=== PATIENT | female | born 1970 | race Caucasian/White ===

== ENCOUNTER 2017-03-08 14:02 | Emergency (ER) | payer BC, MEDICAID ==
[~2017-03-08] VITALS: Ht 167.6 cm; Wt 87.0 kg
[~2017-03-08 14:02] MED LIST: ALBU8I INH; CLON1TAB PO; FIORTAB4 PO; HYDR-2768 PO; NORT75CA PO; POLY119S PO; PROT40TA PO; SOMA350T PO; TRAZ100 PO; ULTR50TA PO
[2017-03-08 14:06] VITALS: BP 134/74; PULSE 84; RESP 16; TEMP 98.2; O2SAT 99
--- NOTE | 2017-03-08 14:15 | PD ---
HPI Chief Complaint: Pain: Acute or Chronic Time Seen by Provider: 14:14 Travel History International Travel<30 days: No Contact w/Intl Traveler<30days: No Traveled to known affect area: No History of Present Illness HPI 46 YO female presents to the ED for evaluation of 4 day history of right breast pain. Acute onset while giving her "a bear hug." Pain is worsened by attempted range of motion, radiates into the right axilla. Denies fever, chills , nausea, vomiting, discharge from the breast. Patient states last mammogram was ~one year ago. She has a distant history of bilateral breast reduction. She states that she had a "mass" in the same breast with MRIs and ultrasounds performed with no diagnosis given. Denies history of fibrocystic breast disease. PFSH Past Medical History Asthma: Yes Cancer: Yes (UTERINE) Cardiovascular Problems: No Diminished Hearing: No Endocrine: Yes Fibromyalgia: Yes Gastrointestinal Disorders: Yes (HX ULCER) Genitourinary: No Hepatitis: No Hiatal Hernia: No Hypertension: Yes (RESOLVED WITH WEIGHT LOSS ; NO MEDS) Immune Disorder: Yes Kidney Stones: Yes Musculoskeletal: Yes Neurologic: Yes Psychiatric: No Reproductive: No Respiratory: Yes (asthma) Migraines: Yes Thyroid Disease: No ?: Not : 0 Para: 0 Miscarriage: 0 : 0 Dilation and Curettage (D&C): Yes (x4) Past Surgical History Abdominal Surgery: Yes (LAP. PADMINI ; GASTRIC BY-PASS; GASTRIC DILATION) AICD: No Body Medical Devices: LEFT URINARY STENT Cardiac Surgery: No Cholecystectomy: Yes Ear Surgery: No Endocrine Surgery: No Eye Surgery: No Genitourinary Surgery: Yes (05/14/13 CYSTOSCOPY WITH STENT INSERTION; 07/21 LEFT ESWL) Gynecologic Surgery: Yes Hysterectomy: Yes Joint Replacement: No Oral Surgery: Yes Pacemaker: No Thoracic Surgery: No Tonsillectomy: Yes Other Surgery: Yes (Sinus sx, Breast reduction ) Social History Alcohol Use: No Tobacco Use: No (Quit 2004) Substance Use: No Allergies-Medications (Allergen,Severity, Reaction): Coded Allergies: Lexapro (Unverified Allergy, Severe, SEVERE RASH, 06/08/15) Elavil (Verified Allergy, Intermediate, Hives, 06/08/15) Paxil (Verified Adverse Reaction, Intermediate, Psychosis, 06/08/15) mood changes, agressive behavior Neosporin (Verified Adverse Reaction, Mild, Rash, 06/08/15) blisters Nonsteroidal Anti-Inflammatory Agts (Unverified Adverse Reaction, Unknown , ULCER HISTORY, 06/08/15) Reported Meds & Prescriptions Reported Meds & Active Scripts Active Tramadol (Tramadol HCl) 50 Mg Tab 50 Mg PO Q8H PRN Reported Trazodone (Trazodone HCl) 100 Mg Tablet 100 Mg PO HS Tramadol (Tramadol HCl) 50 Mg Tab 50 Mg PO Q6H PRN Hydrochlorothiazide 25 Mg Tab 25 Mg PO DAILY Nortriptyline (Nortriptyline HCl) 75 Mg Cap 225 Mg PO HS Clonazepam 1 Mg Tab 1 Mg PO HS Soma (Carisoprodol) 350 Mg Tab 350 Mg PO QID PRN Fioricet (Adutchfuda-Akbwsfkykiqog-Jitghxfy) 50-300-40 Mg Cap 1 Cap PO Q4H PRN Review of Systems Except as stated in HPI: all other systems reviewed are Neg Physical Exam Narrative GENERAL: Well-nourished, well-developed white female in no acute distress. SKIN: Focused skin assessment warm/dry. RIGHT BREAST EXAM: No nipple retraction or peau d orange. No warmth, erythema or nipple discharge. The breast is soft. There are well-healed scars bilaterally. No palpable masses to breast exam. No axillary LAD. ++ Tenderness to palpation over the medial aspect of the pectoral muscle. Resisted abduction of the shoulder with the elbow bent elicits pain in the chest. HEAD: Normocephalic. EYES: No scleral icterus. No injection or drainage. NECK: Supple, trachea midline. No JVD or lymphadenopathy. CARDIOVASCULAR: Regular rate and rhythm without murmurs, gallops, or rubs. RESPIRATORY: Breath sounds equal bilaterally. No accessory muscle use. GASTROINTESTINAL: Abdomen soft, non-tender, nondistended. MUSCULOSKELETAL: No cyanosis, or edema. BACK: Nontender without obvious deformity. No CVA tenderness. Physical exam performed in the presence of Lisa Owen RN. Data Data Last Documented VS Vital Signs Date Time Temp Pulse Resp B/P Pulse Ox O2 Delivery O2 Flow Rate FiO2 03/08/17 14:17 16 03/08/17 14:06 98.2 84 134/74 99 MDM Medical Decision Making Medical Screen Exam Complete: Yes Emergency Medical Condition: Yes Differential Diagnosis Costochondritis versus muscle strain versus musculoskeletal pain versus less likely ruptured breast cyst versus less likely abscess versus other Narrative Course 46 YO female presents to the ED for evaluation of 4 day history of right breast pain. Acute onset while giving her "a bear hug." Pain is worsened by attempted ROM of the right arm, radiates into the right axilla. Denies F/C, N/V , discharge from the breast. Patient up-to-date on mammography. Vitals reviewed. Breast exam is unremarkable. There is some tenderness to palpation of the medial aspect of the pectoralis muscle. This pain is worsened by resisted abduction of the shoulder with the elbow bent. Very low suspicion for breast mass. I suspect this is musculoskeletal pain/costochondritis. Patient is allergic to NSAIDs. She is prescribed a short course of tramadol, instructed to rest, apply warm compresses, avoid overuse of the arm, follow up with the primary care provider. She indicated understanding of the instructions and is agreeable to the care plan. She is stable and discharged home. I Diagnosis Primary Impression: Musculoskeletal chest pain Referrals: Primary Care Physician Patient Instructions: Costochondritis (ED), General Instructions Additional Instructions: Rest, hydrate. Take anti-inflammatories as prescribed. Warm compresses applied to the area may also help to reduce her pain symptoms. Return to normal, gentle activity as tolerated. No heavy use of the right arm for the next week. Follow-up with the primary care provider for further evaluation should symptoms cyst. Return to the ED for any urgent or emergent medical condition. Med/Other Pt SpecificInfo: Prescription(s) given Scripts Tramadol 50 Mg Tab50 Mg PO Q8H PRN (PAIN) #12 TAB Ref 0 Prov:Destinee Lock MD 03/08/17 Disposition: 01 DISCHARGE HOME Condition: Stable Jing Cotto Mar 08, 2017 14:15
[2017-03-08] MEDS ORDERED: SOMA350T PO (14:30)
[2017-03-08] MEDS ORDERED: TRAZ100T6 PO (14:30)
[2017-03-08] MEDS ORDERED: TRAM50TA PO ×2 (14:30→14:38)
[2017-03-08] MEDS ORDERED: CLON1TAB PO (14:30)
[2017-03-08] MEDS ORDERED: NORT75CA PO (14:30)
[2017-03-08] MEDS ORDERED: BUTA1CAP PO (14:30)
[2017-03-08] MEDS ORDERED: HYDR25TA5 PO (14:30)
== END 2017-03-08 15:08 | disposition home or self-care (01) ==
LOC: NEPD 14:02
DX: R07.89 Other chest pain (principal); J45.909 Unspecified asthma, uncomplicated; M79.7 Fibromyalgia; I10 Essential (primary) hypertension; Z79.899 Other long term (current) drug therapy; Z88.8 Allergy status to other drugs, medicaments and biological substances; Z87.891 Personal history of nicotine dependence; Z88.6 Allergy status to analgesic agent
CPT/HCPCS: 99283

== ENCOUNTER 2017-07-11 08:29 | Emergency (ER) | payer BC, MEDICAID ==
[~2017-07-11] VITALS: Ht 167.6 cm; Wt 87.0 kg
[~2017-07-11 08:29] MED LIST changes: -ALBU8I INH; +BUTA1CAP PO; -FIORTAB4 PO; -HYDR-2768 PO; +HYDR25TA5 PO; -POLY119S PO; -PROT40TA PO; +TRAM50TA PO; -TRAZ100 PO; +TRAZ100T6 PO; -ULTR50TA PO
[2017-07-11 08:31] VITALS: BP 160/74; PULSE 90; RESP 13; TEMP 98; O2SAT 99
[2017-07-11 08:48] VITALS: BP 143/88; PULSE 86; RESP 16; O2SAT 100
[2017-07-11] MEDS ORDERED: SODIUM CHLOR 0.9% 1000 ML INJ 1,000 ML IV SCH ×2 (08:49)
[2017-07-11 08:50] VITALS: RESP 16; O2SAT 99
--- NOTE | 2017-07-11 08:53 | PD ---
HPI Chief Complaint: Abdominal Pain Time Seen by Provider: 08:49 Travel History International Travel<30 days: No Contact w/Intl Traveler<30days: No Traveled to known affect area: No History of Present Illness HPI The patient is a 46-year-old female who presents to the emergency department for 3 weeks of intermittent chills, sweats, subjective fever, generalized fatigue, and right lower quadrant abdominal pain. The patient saw her nurse practitioner at Dr. Fair's office yesterday who performed a UA which was unremarkable according to the patient and was referred to the emergency department for further evaluation. The pain is located right lower quadrant, nonradiating, and assisted with occasional painful bowel movements, with normal stool caliber. She denies any dysuria, frequency, or urgency. She does complain of mild nausea with a few episodes of vomiting. The patient does have a history of gastric bypass, cholecystectomy, and hysterectomy. Symptoms are moderate, there are no current alleviating or exacerbating factors. PFSH Past Medical History Hx Anticoagulant Therapy: No Asthma: Yes Cancer: Yes (UTERINE) Cardiovascular Problems: No Diabetes: No Diminished Hearing: No Endocrine: Yes Fibromyalgia: Yes Gastrointestinal Disorders: Yes Genitourinary: No Hepatitis: No Hiatal Hernia: No Hypertension: Yes (RESOLVED WITH WEIGHT LOSS ; NO MEDS) Immune Disorder: Yes Kidney Stones: Yes Medical other: No Musculoskeletal: Yes Neurologic: Yes Psychiatric: No Reproductive: No Respiratory: Yes Migraines: Yes Thyroid Disease: No Tetanus Vaccination: Unknown Influenza Vaccination: Yes ?: Not : 0 Para: 0 Miscarriage: 0 : 0 Dilation and Curettage (D&C): Yes (x4) Past Surgical History Abdominal Surgery: Yes (GASTRIC BY-PASS; GASTRIC DILATION) AICD: No Body Medical Devices: LEFT URINARY STENT Cardiac Surgery: No Cholecystectomy: Yes Ear Surgery: No Endocrine Surgery: No Eye Surgery: No Genitourinary Surgery: Yes (05/14/13 CYSTOSCOPY WITH STENT INSERTION; 07/21 LEFT ESWL) Gynecologic Surgery: Yes Hysterectomy: Yes Joint Replacement: No Oral Surgery: Yes Pacemaker: No Thoracic Surgery: No Tonsillectomy: Yes Social History Alcohol Use: No Tobacco Use: No (Quit 2004) Substance Use: No Allergies-Medications (Allergen,Severity, Reaction): Coded Allergies: escitalopram (Unverified Allergy, Severe, SEVERE RASH, 04/30/17) amitriptyline (Unverified Allergy, Intermediate, Hives, 04/30/17) paroxetine (Unverified Adverse Reaction, Intermediate, Psychosis, 04/30/17) mood changes, agressive behavior bacitracin (Unverified Adverse Reaction, Mild, Rash, 04/30/17) blisters gramicidin D (Unverified Adverse Reaction, Mild, Rash, 04/30/17) blisters neomycin (Unverified Adverse Reaction, Mild, Rash, 04/30/17) blisters polymyxin B (Unverified Adverse Reaction, Mild, Rash, 04/30/17) blisters diclofenac (Unverified Adverse Reaction, Unknown, ULCER HISTORY, 04/30/17) etodolac (Unverified Adverse Reaction, Unknown, ULCER HISTORY, 04/30/17) flurbiprofen (Unverified Adverse Reaction, Unknown, ULCER HISTORY, 04/30/17 ) ibuprofen (Unverified Adverse Reaction, Unknown, ULCER HISTORY, 04/30/17) indomethacin (Unverified Adverse Reaction, Unknown, ULCER HISTORY, 04/30/17 ) ketoprofen (Unverified Adverse Reaction, Unknown, ULCER HISTORY, 04/30/17) ketorolac (Unverified Adverse Reaction, Unknown, ULCER HISTORY, 04/30/17) naproxen (Unverified Adverse Reaction, Unknown, ULCER HISTORY, 04/30/17) oxaprozin (Unverified Adverse Reaction, Unknown, ULCER HISTORY, 04/30/17) Reported Meds & Prescriptions Reported Meds & Active Scripts Active Reported Trazodone (Trazodone HCl) 100 Mg Tablet 100 Mg PO HS Clonazepam 1 Mg Tab 1 Mg PO HS Soma (Carisoprodol) 350 Mg Tab 350 Mg PO QID PRN Review of Systems Except as stated in HPI: all other systems reviewed are Neg General / Constitutional: Positive: Fever, Chills Cardiovascular: No: Chest Pain or Discomfort Respiratory: No: Shortness of Breath Gastrointestinal: Positive: Nausea, Vomiting, Abdominal Pain, Changes in Bowel Habits, No: Diarrhea Genitourinary: No: Urgency, Frequency, Dysuria, Hematuria Musculoskeletal: Positive: Weakness Physical Exam Narrative GENERAL: Awake, alert, nontoxic-appearing 46-year-old female who appears her stated age and is in no acute respiratory distress. SKIN: Focused skin assessment warm/dry. HEAD: Atraumatic. Normocephalic. EYES: Pupils equal and round. No scleral icterus. No injection or drainage. ENT: No nasal bleeding or discharge. Mucous membranes pink and moist. NECK: Trachea midline. No JVD. CARDIOVASCULAR: Regular rate and rhythm. No murmur appreciated. RESPIRATORY: No accessory muscle use. Clear to auscultation. Breath sounds equal bilaterally. GASTROINTESTINAL: Abdomen soft, tender palpation right lower quadrant and right flank. No guarding or rigidity. Back: No CVA tenderness. MUSCULOSKELETAL: No obvious deformities. No clubbing. No cyanosis. No edema. NEUROLOGICAL: Awake and alert. No obvious cranial nerve deficits. Motor grossly within normal limits. Normal speech. PSYCHIATRIC: Appropriate mood and affect; insight and judgment normal. Data Data Last Documented VS Vital Signs Date Time Temp Pulse Resp B/P (MAP) Pulse Ox O2 Delivery O2 Flow Rate FiO2 07/11/17 09:54 16 07/11/17 08:50 99 Room Air 07/11/17 08:48 86 07/11/17 08:31 98.0 Orders Orders Complete Blood Count With Diff (07/11/17 08:49) Comprehensive Metabolic Panel (07/11/17 08:49) Lipase (07/11/17 08:49) Lactic Acid (07/11/17 08:49) Urinalysis - C+S If Indicated (07/11/17 08:49) Ct Abd/Pel W/O Iv Contrast (07/11/17 08:49) Iv Access Insert/Monitor (07/11/17 08:49) Ecg Monitoring (07/11/17 08:49) Oximetry (07/11/17 08:49) Morphine Inj (Morphine Inj) (07/11/17 09:00) Ondansetron Inj (Zofran Inj) (07/11/17 09:00) Sodium Chlor 0.9% 1000 Ml Inj (Ns 1000 M (07/11/17 08:49) Sodium Chloride 0.9% Flush (Ns Flush) (07/11/17 09:00) Hydromorphone Pf Inj (Dilaudid Pf Inj) (07/11/17 11:30) Prochlorperazine Inj (Compazine Inj) (07/11/17 11:30) Labs Laboratory Tests Test 07/11/17 08:53 07/11/17 08:55 White Blood Count 5.1 TH/MM3 Red Blood Count 4.99 MIL/MM3 Hemoglobin 14.3 GM/DL Hematocrit 42.5 % Mean Corpuscular Volume 85.2 FL Mean Corpuscular Hemoglobin 28.7 PG Mean Corpuscular Hemoglobin Concent 33.6 % Red Cell Distribution Width 12.4 % Platelet Count 194 TH/MM3 Mean Platelet Volume 7.8 FL Neutrophils (%) (Auto) 72.1 % Lymphocytes (%) (Auto) 18.7 % Monocytes (%) (Auto) 7.0 % Eosinophils (%) (Auto) 1.7 % Basophils (%) (Auto) 0.5 % Neutrophils # (Auto) 3.6 TH/MM3 Lymphocytes # (Auto) 0.9 TH/MM3 Monocytes # (Auto) 0.4 TH/MM3 Eosinophils # (Auto) 0.1 TH/MM3 Basophils # (Auto) 0.0 TH/MM3 CBC Comment DIFF FINAL Differential Comment Blood Urea Nitrogen 12 MG/DL Creatinine 0.86 MG/DL Random Glucose 109 MG/DL Total Protein 8.2 GM/DL Albumin 4.4 GM/DL Calcium Level 9.3 MG/DL Alkaline Phosphatase 104 U/L Aspartate Amino Transf (AST/SGOT) 19 U/L Alanine Aminotransferase (ALT/SGPT) 27 U/L Total Bilirubin 0.2 MG/DL Sodium Level 138 MEQ/L Potassium Level 3.6 MEQ/L Chloride Level 105 MEQ/L Carbon Dioxide Level 25.3 MEQ/L Anion Gap 8 MEQ/L Estimat Glomerular Filtration Rate 70 ML/MIN Lactic Acid Level 2.5 mmol/L Lipase 276 U/L Urine Color YELLOW Urine Turbidity CLEAR Urine pH 5.5 Urine Specific [place] 1.015 Urine Protein NEG mg/dL Urine Glucose (UA) NEG mg/dL Urine Ketones NEG mg/dL Urine Occult Blood SMALL Urine Nitrite NEG Urine Bilirubin NEG Urine Urobilinogen LESS THAN 2.0 MG/DL Urine Leukocyte Esterase NEG Urine RBC 2 /hpf Urine WBC 1 /hpf Urine Squamous Epithelial Cells 2 /hpf Urine Mucus FEW /lpf Microscopic Urinalysis Comment CULT NOT INDICATED MDM Medical Decision Making Medical Screen Exam Complete: Yes Emergency Medical Condition: Yes Medical Record Reviewed: Yes Interpretation(s) Last Impressions Abdomen/Pelvis CT 07/11/17 0849 Signed Impressions: Service Date/Time: Tuesday, July 11, 2017 09:28 - CONCLUSION: 1. No acute abnormality to explain the patient's pain. 2. Prior cholecystectomy. 3. Prior gastric bypass. 4. Prior granulomatous disease. Abilio Ritter Jr., MD Laboratory Tests Test 07/11/17 08:53 07/11/17 08:55 White Blood Count 5.1 TH/MM3 Red Blood Count 4.99 MIL/MM3 Hemoglobin 14.3 GM/DL Hematocrit 42.5 % Mean Corpuscular Volume 85.2 FL Mean Corpuscular Hemoglobin 28.7 PG Mean Corpuscular Hemoglobin Concent 33.6 % Red Cell Distribution Width 12.4 % Platelet Count 194 TH/MM3 Mean Platelet Volume 7.8 FL Neutrophils (%) (Auto) 72.1 % Lymphocytes (%) (Auto) 18.7 % Monocytes (%) (Auto) 7.0 % Eosinophils (%) (Auto) 1.7 % Basophils (%) (Auto) 0.5 % Neutrophils # (Auto) 3.6 TH/MM3 Lymphocytes # (Auto) 0.9 TH/MM3 Monocytes # (Auto) 0.4 TH/MM3 Eosinophils # (Auto) 0.1 TH/MM3 Basophils # (Auto) 0.0 TH/MM3 CBC Comment DIFF FINAL Differential Comment Blood Urea Nitrogen 12 MG/DL Creatinine 0.86 MG/DL Random Glucose 109 MG/DL Total Protein 8.2 GM/DL Albumin 4.4 GM/DL Calcium Level 9.3 MG/DL Alkaline Phosphatase 104 U/L Aspartate Amino Transf (AST/SGOT) 19 U/L Alanine Aminotransferase (ALT/SGPT) 27 U/L Total Bilirubin 0.2 MG/DL Sodium Level 138 MEQ/L Potassium Level 3.6 MEQ/L Chloride Level 105 MEQ/L Carbon Dioxide Level 25.3 MEQ/L Anion Gap 8 MEQ/L Estimat Glomerular Filtration Rate 70 ML/MIN Lactic Acid Level 2.5 mmol/L Lipase 276 U/L Urine Color YELLOW Urine Turbidity CLEAR Urine pH 5.5 Urine Specific [place] 1.015 Urine Protein NEG mg/dL Urine Glucose (UA) NEG mg/dL Urine Ketones NEG mg/dL Urine Occult Blood SMALL Urine Nitrite NEG Urine Bilirubin NEG Urine Urobilinogen LESS THAN 2.0 MG/DL Urine Leukocyte Esterase NEG Urine RBC 2 /hpf Urine WBC 1 /hpf Urine Squamous Epithelial Cells 2 /hpf Urine Mucus FEW /lpf Microscopic Urinalysis Comment CULT NOT INDICATED Differential Diagnosis Differential diagnosis includes diverticulitis, appendicitis, intra-abdominal abscess, internal hernia, pyelonephritis, retained biliary stone, viral syndrome , dehydration. Narrative Course IV was established, labs are drawn and sent, and the patient was placed on cardiac telemetry monitoring and continuous pulse oximetry monitoring. The patient was administered morphine, Zofran, and IV fluids. UA was sent to lab. Noncontrast CT of the abdomen and pelvis was performed. Patient's white count, LFTs, lipase unremarkable. Lactic acid is mildly elevated at 2.5. CT the abdomen and pelvis reveals postoperative changes, however, no acute findings. UA is unremarkable. Vital signs are stable. The patient is stable for outpatient follow-up with her primary physician. The patient will be provided a copy of her labs and CT results at discharge. The patient was reassessed at 11:24 AM, still had mild discomfort. Therefore, was administered a second dose of pain medicine and antiemetics. The patient will be discharged home on antiemetics and pain medicine. She is advised to follow-up with her primary physician. Diagnosis Primary Impression: Abdominal pain Qualified Codes: R10.31 - Right lower quadrant pain Patient Instructions: General Instructions Additional Instructions: Follow-up with your primary physician. Return if symptoms worsen or progress. Please provide the patient a copy of her CT results and lab results at discharge. Return if symptoms worsen or progress. Med/Other Pt SpecificInfo: Prescription(s) given Scripts Hydrocodone-Acetaminophen ([place]) 5-325 mg Tab 1 TAB PO Q6H Y for PAIN, #12 TAB 0 Refills Prov: Ash Becerril MD 07/11/17 Ondansetron Odt (Zofran Odt) 4 Mg Tab 4 MG SL Q6HR Y for Nausea/Vomiting, #10 TAB 0 Refills Prov: Ash Becerril MD 07/11/17 Disposition: DISCHARGE HOME Condition: Stable Ash Becerril MD Jul 11, 2017 08:53
[2017-07-11] MEDS ORDERED: ONDANSETRON HCL 4 MG/2 ML VIAL IVP ONE ×2 (09:00)
[2017-07-11] MEDS ORDERED: MORPHINE SULFATE 4 MG/ML INJ IV PUSH ONE ×2 (09:00)
[2017-07-11] MEDS ORDERED: SODIUM CHLORIDE 0.9% FLUSH 10 ML FLUSH IV FLUSH PRN ×2 (09:00)
[2017-07-11 09:05] LABS: AUTOMATED NEUTROPHIL # 3.6 TH/MM3 (1.8-7.7); BASOPHIL % 0.5 % (0.0-2.0); EOSINOPHIL # 0.1 TH/MM3 (0-0.4); EOSINOPHIL % 1.7 % (0.0-4.0); HEMATOCRIT 42.5 % (35.0-46.0); HEMOGLOBIN 14.3 GM/DL (11.6-15.3); LYMPH % 18.7 % (9.0-44.0); LYMPHOCYTE # 0.9 TH/MM3 (1.0-4.8); MEAN CELL VOLUME 85.2 FL (80.0-100.0); MEAN CORPUSCULAR HEMOGLOBIN 28.7 PG (27.0-34.0); MEAN CORPUSCULAR HGB CONC 33.6 % (32.0-36.0); MEAN PLATELET VOLUME 7.8 FL (7.0-11.0); MONOCYTE # 0.4 TH/MM3 (0-0.9); NEUT % 72.1 % (16.0-70.0); PLATELET COUNT 194 TH/MM3 (150-450); RED BLOOD COUNT 4.99 MIL/MM3 (4.00-5.30); RED CELL DISTRIBUTION WIDTH 12.4 % (11.6-17.2); WHITE BLOOD COUNT 5.1 TH/MM3 (4.0-11.0)
[2017-07-11 09:20] LABS: ALBUMIN 4.4 GM/DL (3.4-5.0); AST (GOT) 19 U/L (15-37); BICARBONATE 25.3 MEQ/L (21.0-32.0); BLOOD UREA NITROGEN 12 MG/DL (7-18); CALCIUM 9.3 MG/DL (8.5-10.1); CHLORIDE 105 MEQ/L (98-107); CREATININE 0.86 MG/DL (0.50-1.00); GLOMERULAR FILTRATION RATE 70 ML/MIN (>89); GLUCOSE,RANDOM 109 MG/DL (74-106); LIPASE 276 U/L (73-393); SODIUM (NA) 138 MEQ/L (136-145)
[2017-07-11 09:23] LABS: ALKALINE PHOSPHATASE 104 U/L (45-117); ALT (GPT) 27 U/L (10-53); TOTAL BILIRUBIN ADULT 0.2 MG/DL (0.2-1.0); TOTAL PROTEIN 8.2 GM/DL (6.4-8.2)
[2017-07-11 09:54] VITALS: RESP 16
--- NOTE | 2017-07-11 10:00 | RADRPT ---
EXAM DATE/TIME: 07/11/2017 09:28 [facility] COMPARISON: No previous studies available for comparison. INDICATIONS : Right lower quadrant pain, nausea, vomiting and fatigue. ORAL CONTRAST: No oral contrast ingested. RADIATION DOSE: 7.77 CTDIvol (mGy) MEDICAL HISTORY : Hypertension. Renal calculi. Uterine cancer SURGICAL HISTORY : Hysterectomy. Cholecystectomy.Gastric bypass. ENCOUNTER: Initial ACUITY: 3 weeks PAIN SCALE: 7/10 LOCATION: Right lower quadrant TECHNIQUE: Volumetric scanning of the abdomen and pelvis was performed. Using automated exposure control and ad justment of the mA and/or kV according to patient size, radiation dose was kept as low as reasonably achievable to obtain optimal diagnostic quality images. DICOM format image data is available electro nically for review and comparison. FINDINGS: LOWER LUNGS: Multiple calcified granulomas involving the lung bases. LIVER: Homogeneous density without lesion. There is no dilation of the biliary tree. Gallbladder surgically absent. SPLEEN: Normal size without lesion. Granulomatous calcifications. PANCREAS: Within normal limits. KIDNEYS: The left kidney is smaller than the right. Areas of cortical scarring involving the left upper pole. No renal calculi or ureteral calculi. No hydronephrosis or hydroureter. No mass on this unenhanced st udy. ADRENAL GLANDS: Within normal limits. VASCULAR: There is no aortic aneurysm. BOWEL/MESENTERY: Post gastric bypass changes. Small bowel and colon are unremarkable. No free air or free fluid. ABDOMINAL WALL: Within normal limits. RETROPERITONEUM: There is no lymphadenopathy. BLADDER: No wall thickening or mass. REPRODUCTIVE: Within normal limits. INGUINAL: There is no lymphadenopathy or hernia. MUSCULOSKELETAL: A degenerative lumbar spine. CONCLUSION: 1. No acute abnormality to explain the patient's pain. 2. Prior cholecystectomy. 3. Prior gastric bypass. 4. Prior granulomatous disease. Abilio Ritter Jr., MD on July 11, 2017 at 9:50 Board Certified Radiologist. This report was verified electronically.
[2017-07-11 10:22] LABS: BILIRUBIN, URINE NEG (NEG); BLOOD, URINE SMALL (NEG); GLUCOSE,URINE NEG (NEG); KETONE, URINE NEG (NEG); MUCUS URINE FEW /lpf (OCC); NITRITE,URINE NEG (NEG); PH, URINE 5.5 (5.0-8.5); SQUAMOUS EPITHELIAL CELL URINE 2 /hpf (0-5); URINE COLOR YELLOW (YELLW/STRAW); URINE LEUKOCYTE ESTERASE NEG (NEG)
[2017-07-11] MEDS ORDERED: ZOFR4TAB3 SL ×2 (11:27)
[2017-07-11] MEDS ORDERED: NORC5TAB PO ×2 (11:27)
[2017-07-11] MEDS ORDERED: HYDROmorphone HCL PF 0.5 MG/0.5 ML SYRINGE IV PUSH ONE ×2 (11:30)
[2017-07-11] MEDS ORDERED: PROCHLORPERAZINE INJ 10 MG/2 ML VIAL IV PUSH ONE ×2 (11:30)
== END 2017-07-11 12:02 | disposition home or self-care (01) ==
LOC: NEPC 08:29
DX: R10.31 Right lower quadrant pain (principal); R11.2 Nausea with vomiting, unspecified; R50.9 Fever, unspecified; R53.1 Weakness; J45.909 Unspecified asthma, uncomplicated; M79.7 Fibromyalgia; I10 Essential (primary) hypertension; Z79.899 Other long term (current) drug therapy
CPT/HCPCS: 74176; 80053; 81001; 83605; 83690; 85025; 96361; 96374; 96375; 99285; J0780; J1170; J2270; J2405; J7030

== ENCOUNTER 2018-04-28 10:56 | Observation (INO) ==
--- NOTE | 2018-04-28 11:53 | ED ---
HPI General Chief Complaint: Chest Pain Stated Complaint: chest pain x yesterday Time Seen by Provider: 04/28/18 11:32 Source: patient Mode of arrival: ambulatory Limitations: no limitations History of Present Illness MD complaint: chest pain Complete Quality Measures for STEMI Alert Patients STEMI Alert: No Onset (ago): hour(s) (12-15) Duration: constant Onset: during rest Pain location: substernal Severity scale (1-10): 4 Quality: heaviness Pain radiation: none Relieving factors: nothing Exacerbating factors: movement Associated symptoms: dyspnea, palpitations and other (dizziness and fatigue) Treatments prior to arrival chest pain: none Related Data Home Medications Medication Instructions Recorded Confirmed clonazepam 1 mg PO HS 04/28/18 04/28/18 cyanocobalamin (vitamin B-12) 1,000 mcg DAILY 04/28/18 04/28/18 [Vitamin B-12] cyclobenzaprine 5 mg PO TID 04/28/18 04/28/18 nortriptyline 50 mg PO HS 04/28/18 04/28/18 trazodone 100 mg PO HS 04/28/18 04/28/18 Allergies Allergy/AdvReac Type Severity Reaction Status Date / Time escitalopram Allergy Severe SEVERE RASH Unverified 04/30/17 00:22 amitriptyline Allergy Intermediate Hives Unverified 04/30/17 00:22 paroxetine AdvReac Intermediate Psychosis Unverified 04/30/17 00:22 bacitracin AdvReac Mild Rash Unverified 04/30/17 00:22 gramicidin D AdvReac Mild Rash Unverified 04/30/17 00:22 neomycin AdvReac Mild Rash Unverified 04/30/17 00:22 polymyxin B AdvReac Mild Rash Unverified 04/30/17 00:22 diclofenac AdvReac Unknown ULCER Unverified 04/30/17 00:22 HISTORY etodolac AdvReac Unknown ULCER Unverified 04/30/17 00:22 HISTORY flurbiprofen AdvReac Unknown ULCER Unverified 04/30/17 00:22 HISTORY ibuprofen AdvReac Unknown ULCER Unverified 04/30/17 00:22 HISTORY indomethacin AdvReac Unknown ULCER Unverified 04/30/17 00:22 HISTORY ketoprofen AdvReac Unknown ULCER Unverified 04/30/17 00:22 HISTORY ketorolac AdvReac Unknown ULCER Unverified 04/30/17 00:22 HISTORY naproxen AdvReac Unknown ULCER Unverified 04/30/17 00:22 HISTORY oxaprozin AdvReac Unknown ULCER Unverified 04/30/17 00:22 HISTORY Review of Systems ROS: all other systems reviewed are negative FORMERLY [facility], 1928–1983 Medical History Medical History Bleeding acute gastric ulcer (Acute) Fibromyalgia (Acute) H/O: hysterectomy (Acute) Migraines (Acute) Surgical History Surgical History Gastric bypass status for obesity (Acute) Hx of dilation and curettage (Acute) Social History Social History Substance History: No History of Abuse Second Hand Smoke Exposure: No Smoking Status: Never smoker How Often Do You Have a Drink Containing Alcohol: Never Recent Travel in [facility] within the Last 8 Weeks: No Recent Out of Country Travel within the Last 8 Weeks: No Immunization History Tetanus Immunization: >5 Years Hx Influenza Vaccine This Season: Yes Exam Const General: cooperative, healthy appearing, comfortable, no acute distress, well developed and well groomed Nutritional Appearance: average body habitus Orientation: alert, awake and oriented x3 HENVA Head: normal to inspection, normocephalic and atraumatic Eyes General: appearance normal, both eyes and all related structures EOM: EOM intact bilaterally Neck Neck: normal visual inspection Chest Chest: normal inspection of the chest, normal palpation of entire chest wall and no tenderness Resp Effort & Inspection: normal respiratory effort and able to speak in complete sentences Auscultation: clear to auscultation bilaterally Cardio Rate: regular rate Rhythm: regular rhythm Heart Sounds: S1 normal and S2 normal GI Inspection: normal to inspection Palpation: soft Back/Spine/Pelvis Cervical Spine: cervical ROM normal Thoracic/Lumbar Spine: thoraco-lumbar ROM normal Skin General: no rashes or lesions noted and turgor normal Neuro General: alert, awake, oriented x3, moves all extremities and CN's II-XI intact bilaterally Extrem General: normal to inspection, full ROM and no edema Psych Appearance: grossly normal Mental Status: mental status grossly normal Speech and Movement: speech and movement normal Mood: congruent mood Affect: normal affect Attitude: cooperative Thought Process: normal Thought Content: normal Judgment: judgment good Course Consultations Consultation #1: Dr. Saini will admit to [facility] for further evaluation. Time: 12:56 Initial Documented Vital Signs Temperature 97.7 F 04/28/18 11:02 Pulse Rate 72 04/28/18 11:02 Respiratory Rate 16 04/28/18 11:02 Blood Pressure 148/83 H 04/28/18 11:02 Pulse Oximetry 100 04/28/18 11:02 Last Documented Vital Signs Temperature 97.7 F 04/28/18 11:02 Pulse Rate 65 04/28/18 11:30 Respiratory Rate 16 04/28/18 11:30 Blood Pressure 125/78 04/28/18 11:30 Pulse Oximetry 100 04/28/18 11:30 Critical Care Time Critical Care Time: Yes Total Critical Care Time: 30 Attestation: Time to perform other separately billable procedures was not included in the critical care time. My time did not include minutes spent treating any other patients simultaneously or on activities that did not directly contribute to the patient's treatment. The services I provided to this patient were to treat and/or prevent clinically significant deterioration due to chest pain, rule out ACS. I provided critical care services requiring my management, as noted below: Chart data review, documentation time, medication orders and management, vital sign assessments/reviewing monitor data, ordering and reviewing lab tests, ordering and interpreting/reviewing x-rays and diagnostic studies, care of the patient and discussion of the patient with the admitting physicians Clinical Decision Support HEART Score Questions History: Slightly suspicious EKG: Normal Age: 45-64 years Risk Factors: No Known Risk Factors Initial Troponin: Normal Limit Heart Score HEART Score: 1 PERC Rule Age greater than or equal to 50: No HR greather than or equal to 100: No Sa02 on room air is less than 95%: No Unilateral Leg Swelling: No Hemoptysis: No Recent Surgery or Trauma: No Prior PE or DVT: No Hormone Use: No Medical Decision Making MDM Narrative Medical decision making narrative: This patient presents with a chief complaint of chest pain with associated palpitations. Onset was last night. Her physical exam is unremarkable. Her initial EKG is normal. I have discussed my initial plan with the patient. Specifically, I will work her up here in the emergency department. If her initial workup is negative, I recommend admission to the chest pain center for further evaluation. She is agreeable with this initial treatment plan. The patient cannot take aspirin because of a history of bleeding peptic ulcer disease. Initial evaluation is indeed negative. I will request an OBS admission to the chest pain center for further evaluation. Medical Screen Exam Complete: Yes Emergency Medical Condition: Yes Differential Diagnosis Differential Diagnosis: Differential diagnosis of chest pain includes but is not limited to musculoskeletal pain, pulmonary embolism, acute coronary syndrome , pneumonia, pleurisy Medical Records Medical records reviewed: Yes I reviewed the patient's medical records. Lab Data Lab results reviewed: Yes I reviewed the patient's lab results. Result diagrams: 04/28/18 11:57 04/28/18 11:57 Lab Results 04/28/18 04/28/18 Range/Units 11:57 11:57 CBC w Diff Auto diff final WBC 6.3 (4.0-11.0) th/mm3 RBC 4.78 (4.00-5.30) mil/mm3 Hgb 13.4 (11.6-15.3) gm/dL Hct 39.9 (35.0-46.0) % MCV 83.5 (80.0-100.0) fL MCH 28.1 (27.0-34.0) pg MCHC 33.6 (32.0-36.0) % RDW 12.5 (11.6-17.2) % Plt Count 268 (150-450) th/mm3 MPV 8.1 (7.0-11.0) fL Neut % (Auto) 73.5 H (16.0-70.0) % Lymph % (Auto) 18.7 (9.0-44.0) % [place] % (Auto) 5.7 (0.0-8.0) % Eos % (Auto) 1.5 (0.0-4.0) % Baso % (Auto) 0.6 (0.0-2.0) % Neut # (Auto) 4.6 (1.8-7.7) th/mm3 Lymph # (Auto) 1.2 (1.0-4.8) th/mm3 [place] # (Auto) 0.4 (0.0-0.9) th/mm3 Eos # (Auto) 0.1 (0.0-0.4) th/mm3 Baso # (Auto) 0.0 (0.0-0.2) th/mm3 WBC Differential . Differential Comment . Sodium 139 (136-145) meq/L Potassium 3.8 (3.5-5.1) meq/L Chloride 105 (98-107) meq/L Carbon Dioxide 27.3 (21.0-32.0) meq/L Anion Gap 7 (5-15) meq/L BUN 12 (7-18) mg/dL Creatinine 0.98 (0.50-1.00) mg/dL Estimated GFR 60 L (>89) mL/min Random Glucose 77 (74-106) mg/dL Calcium 9.2 (8.5-10.1) mg/dL Troponin I Less than 0.02 L (0.02-0.05) ng/mL Imaging Data Attestation: I personally reviewed and interpreted this imaging study as follows : Radiologist's impression: Chest X-Ray 04/28/18 11:34 CONCLUSION: 1. Granulomatous type calcifications in both lungs, left greater than right. 2. No acute infiltrate. ECG Data EKG Prior to Arrival: Yes Attestation: I personally reviewed and interpreted this ECG as follows: Discharge Plan Discharge Disposition Patient Disposition: 30 Still Patient Discharge Details Diagnosis: Chest pain Physicians Team ED Provider: Destinee Lock Primary Care Provider: Susie Johnson Rxs /Orders / Referrals /Forms Prescriptions: No Action clonazepam 1 mg Tablet 1 mg PO HS RF: 0 cyanocobalamin (vitamin B-12) [Vitamin B-12] 1,000 mcg Tablet 1,000 mcg DAILY RF: 0 trazodone 100 mg Tablet 100 mg PO HS RF: 0 nortriptyline 50 mg Capsule 50 mg PO HS RF: 0 cyclobenzaprine 5 mg Tablet 5 mg PO TID RF: 0 Discharge Instructions Patient Printed Instructions: Chest Pain (ED) Status ED Status: With Doctor
--- NOTE | 2018-04-28 12:01 | XR ---
EXAM DATE: 04/28/2018 11:47 AM EDT AGE/SEX: 47 years / Female INDICATIONS: Chest tightness, heaviness, heart palpitations since last night. CLINICAL DATA: This is the patient's initial encounter. Patient reports that signs and symptoms have been present for 2 days and indicates a pain score of 4/10. MEDICAL/SURGICAL HISTORY: . History of diabetes, high cholesterol, hypertension prior to gastri c bypass surgery. Gastric bypass. COMPARISON: [facility] [place]ST SING[place] AP, 01/27/2016. . FINDINGS: There are bilateral granulomatous type calcifications, predominantly on the left. Left hilar calcific ations are also present. Lungs are otherwise clear of acute infiltrate. There are no effusions. Heart size is normal. Some degenerative spurring of the dorsal spine CONCLUSION: 1. Granulomatous type calcifications in both lungs, left greater than right. 2. No acute infiltrate. Electronically signed by: Victor Manuel Valentin MD 04/28/2018 11:59 AM EDT
[2018-04-28 12:08] LABS: Baso % (Auto) 0.6 % (0.0-2.0); Eos # (Auto) 0.1 th/mm3 (0.0-0.4); Eos % (Auto) 1.5 % (0.0-4.0); Hematocrit 39.9 % (35.0-46.0); Hemoglobin 13.4 gm/dL (11.6-15.3); Lymph # (Auto) 1.2 th/mm3 (1.0-4.8); Lymph % (Auto) 18.7 % (9.0-44.0); Mean Corpuscular HGB Conc 33.6 % (32.0-36.0); Mean Corpuscular Hemoglobin 28.1 pg (27.0-34.0); Mean Corpuscular Volume 83.5 fL (80.0-100.0); Mean Platelet Volume 8.1 fL (7.0-11.0); Mono # (Auto) 0.4 th/mm3 (0.0-0.9); Mono % (Auto) 5.7 % (0.0-8.0); Neut # (Auto) 4.6 th/mm3 (1.8-7.7); Neut % (Auto) 73.5 % (16.0-70.0); Platelet Count 268 th/mm3 (150-450); Red Blood Count 4.78 mil/mm3 (4.00-5.30); Red Cell Distribution Width 12.5 % (11.6-17.2); White Blood Count 6.3 th/mm3 (4.0-11.0)
[2018-04-28 12:14] LABS: Chloride 105 meq/L (98-107); Potassium 3.8 meq/L (3.5-5.1); Sodium 139 meq/L (136-145)
[2018-04-28 12:17] LABS: Anion Gap 7 meq/L (5-15); Calcium 9.2 mg/dL (8.5-10.1); Carbon Dioxide 27.3 meq/L (21.0-32.0); Glucose,Random 77 mg/dL (74-106)
[2018-04-28 12:18] LABS: Blood Urea Nitrogen 12 mg/dL (7-18)
[2018-04-28 12:21] LABS: Glomerular Filtration Rate 60 mL/min (>89)
[2018-04-28] MEDS ORDERED: Acetaminophen 500 MG Tablet PO PRN (13:12)
[2018-04-28] MEDS ORDERED: Morphine Sulfate Inj 2 MG/ML Vial IV.PUSH PRN (13:30)
--- NOTE | 2018-04-28 13:55 | ECG ---
Date Performed: 04/28/2018 Time Performed: 11:02:36 PTAGE: 47 years EKG: Sinus rhythm NORMAL ECG NO PREVIOUS TRACING DOCTOR: Arnel Gaines Interpretating Date/Time 04/28/2018 13:54:36
--- NOTE | 2018-04-28 15:19 | P.HP ---
History of Present Illness Primary Care Physician: Susie Johnson Chief Complaint: Chest pain History of Present Illness: 47-year-old female with known history of fibromyalgia, hypertension, hyperlipidemia, diabetes, obesity status post gastric bypass, esophagitis with gastric ulcers who presented to the hospital because of very atypical chest discomfort. Patient indicates for the last year she has been experiencing a discomfort in which she explains and describes as a cold sensation starting in her heart going all way down into her leg veins and then back up into her heart sometimes it is associated with a pressure/heaviness sensation in the middle part of her chest, without any radiation to the neck, back, shoulder, arms. She does have some nausea occasionally dizziness occasionally. She denies any shortness of breath, dyspnea, diaphoresis. Patient states that she had worsening of the symptoms over the last couple days. She states that it was worse when she was laying down this morning that she got up and because the pain was constant she was concerned and came to emergency department. She states that the pain usually lasts for 2-3 minutes at a time usually but it did not this time. She states that she has notified her primary medical doctor about these symptoms before, however there is been no outpatient workup at this time. Patient was evaluated in the emergency department, workup was negative. Patient was recommended by the ER physician to be observed for chest pain center. - Diagnosis (1) Chest pain Review of Systems All other systems reviewed negative except as stated in HPI Cardiovascular: Reports chest pain Neurologic: Reports dizziness PMFSH - History History Provided By: Patient - Medical History Medical History: Medical History (Last Updated 04/28/18 @ 15:16 by LOIS Velazquez) Bleeding acute gastric ulcer Fibromyalgia History of diabetes mellitus History of hyperlipidemia History of hypertension Migraines - Surgical History Surgical History: Surgical History (Last Updated 04/28/18 @ 15:16 by LOIS Velazquez) Gastric bypass status for obesity H/O: hysterectomy Hx of dilation and curettage - Family History Family History: Family History (Last Updated 04/28/18 @ 15:16 by LOIS Velazquez) Other No pertinent family history - Tobacco History Second Hand Smoke Exposure: No Tobacco Use In Past 30 Days: No Smoking Status: Never smoker Number of Pack Years (if former smoker): 45 - Alcohol History How Often Do You Have a Drink Containing Alcohol: Never - Substance Use History Substance History: No History of Abuse - Travel History Recent Travel in the [place] Within the Last 8 Weeks: No Recent Travel Out of the Country Within the Last 8 Weeks: No - Immunization History Tetanus Immunization: >5 Years Hx Influenza Vaccine This Season: Yes Medications and Allergies Active Medications: Active Medications Acetaminophen (Tylenol) 500 mg PO Q4H PRN PRN Reason: HEADACHE Hydrocodone Bitart/Acetaminophen ([place] 7.5/325) 1 tab PO Q4H PRN PRN Reason: PAIN SCALE 1 TO 7 Aspirin (Aspirin) 325 mg PO DAILY YONAS Clonazepam (Klonopin) 1 mg PO HS YONAS Cyclobenzaprine HCl (Flexeril) 5 mg PO TID YONAS Miscellaneous (Pill Splitter) 1 each OTHER UNSCH PRN PRN Reason: SEE LABEL COMMENTS Morphine Sulfate (Morphine Inj) 2 mg IV.PUSH Q4H PRN PRN Reason: PAIN 8-10 Nitroglycerin (Nitrostat Sl) 0.4 mg SL Q5M PRN PRN Reason: CHEST PAIN Nortriptyline HCl (Pamelor) 50 mg PO HS YONAS Ondansetron HCl (Zofran Inj) 4 mg IV.PUSH Q6H PRN PRN Reason: NAUSEA Sodium Chloride (Ns Flush) 2 ml IV.FLUSH BID YONAS Sodium Chloride (Ns Flush) 2 ml IV.FLUSH PRN PRN PRN Reason: FLUSH AFTER USING IV ACCESS Trazodone HCl (Desyrel) 100 mg PO HS YONAS Allergies Allergy/AdvReac Type Severity Reaction Status Date / Time escitalopram Allergy Severe SEVERE RASH Verified 04/28/18 13:25 amitriptyline Allergy Intermediate Hives Verified 04/28/18 13:25 paroxetine AdvReac Intermediate Psychosis Verified 04/28/18 13:25 bacitracin AdvReac Mild Rash Verified 04/28/18 13:25 gramicidin D AdvReac Mild Rash Verified 04/28/18 13:25 neomycin AdvReac Mild Rash Verified 04/28/18 13:25 polymyxin B AdvReac Mild Rash Verified 04/28/18 13:25 diclofenac AdvReac Unknown ULCER Verified 04/28/18 13:25 HISTORY etodolac AdvReac Unknown ULCER Verified 04/28/18 13:25 HISTORY flurbiprofen AdvReac Unknown ULCER Verified 04/28/18 13:25 HISTORY ibuprofen AdvReac Unknown ULCER Verified 04/28/18 13:25 HISTORY indomethacin AdvReac Unknown ULCER Verified 04/28/18 13:25 HISTORY ketoprofen AdvReac Unknown ULCER Verified 04/28/18 13:25 HISTORY ketorolac AdvReac Unknown ULCER Verified 04/28/18 13:25 HISTORY naproxen AdvReac Unknown ULCER Verified 04/28/18 13:25 HISTORY oxaprozin AdvReac Unknown ULCER Verified 04/28/18 13:25 HISTORY Home Medications Medication Instructions Recorded Confirmed Type clonazepam 1 mg PO HS 04/28/18 04/28/18 History cyanocobalamin (vitamin B-12) 1,000 mcg DAILY 04/28/18 04/28/18 History [Vitamin B-12] cyclobenzaprine 5 mg PO TID 04/28/18 04/28/18 History nortriptyline 50 mg PO HS 04/28/18 04/28/18 History trazodone 100 mg PO HS 04/28/18 04/28/18 History Exam Vital signs: Vital Signs 04/28/18 11:02 04/28/18 11:30 04/28/18 13:12 Temperature 97.7 F Pulse Rate 72 65 71 Respiratory Rate 16 16 16 Blood Pressure 148/83 H 125/78 131/84 Pulse Oximetry 100 100 100 04/28/18 14:38 Temperature 96.8 F L Pulse Rate 75 Respiratory Rate 20 Blood Pressure 170/84 H Pulse Oximetry 98 Intake & Output 04/27/18 04/28/18 04/28/18 18:59 06:59 18:59 Weight 78 kg Other: Weight On Admission 78 kg Narrative: GENERAL: Well-developed, well-nourished, in no acute distress. alert and orientated HEENT: Head is normocephalic without any lesions or masses noted. Facial features are symmetric. Eyes: Pupils equal round reactive to light. Extraocular muscles are intact. Conjunctivae were clear. Oropharyngeal: Pharynx without any erythema edema. Tongue is midline without deviation. Buccal mucosa is moist without any masses or lesions NECK: Supple without any masses. Trachea midline no deviation. No JVD, no bruits are appreciated CARDIAC: Regular rhythm, regular rate. S1/S2 are heard. No murmurs gallops or rubs. LUNGS: Clear to auscultation bilaterally. No wheeze, rhonchi or rales. No use of accessory muscles on inspiration or expiration. ABDOMEN: Soft, nontender. Nondistended. Bowel sounds heard in all 4 quadrants. No organomegaly or masses. Negative rebound, negative guarding EXTREMITIES: No edema, pulses are equal bilaterally. No cyanosis or clubbing NEUROLOGY: Mood and affect appear appropriate. Cranial nerves II through XII grossly intact. Muscle strength 5/5 in upper and lower extremities bilaterally. Deep tendon reflexes are 2+ in upper and lower extremities bilaterally. Results - Labs CBC & Chem 7: 04/28/18 11:57 04/28/18 11:57 Labs: Laboratory Results - last 24 hr 04/28/18 04/28/18 11:57 11:57 CBC w Diff Auto diff final WBC 6.3 RBC 4.78 Hgb 13.4 Hct 39.9 MCV 83.5 MCH 28.1 MCHC 33.6 RDW 12.5 Plt Count 268 MPV 8.1 Neut % (Auto) 73.5 H Lymph % (Auto) 18.7 [place] % (Auto) 5.7 Eos % (Auto) 1.5 Baso % (Auto) 0.6 Neut # (Auto) 4.6 Lymph # (Auto) 1.2 [place] # (Auto) 0.4 Eos # (Auto) 0.1 Baso # (Auto) 0.0 WBC Differential . Differential Comment . Sodium 139 Potassium 3.8 Chloride 105 Carbon Dioxide 27.3 Anion Gap 7 BUN 12 Creatinine 0.98 Estimated GFR 60 L Random Glucose 77 Calcium 9.2 Troponin I Less than 0.02 L - Imaging Impressions Chest X-Ray 04/28/18 11:34 CONCLUSION: 1. Granulomatous type calcifications in both lungs, left greater than right. 2. No acute infiltrate. Caprini VTE Risk Assessment Caprini VTE Risk Assessment: No/Low Risk (score <= 1) Caprini Risk Assessment Model: Point Value = 1 Point Value = 2 Point Value = 3 Point Value = 5 Age 41-60 Minor surgery BMI > 25 kg/m2 Swollen legs Varicose veins or History of unexplained or recurrent spontaneous Oral contraceptives or hormone replacement Sepsis (< 1 month) Serious lung disease, including pneumonia (< 1 month) Abnormal pulmonary function Acute myocardial infarction Congestive heart failure (< 1 month) History of inflammatory bowel disease Medical patient at bed rest Age 61-74 Arthroscopic surgery Major open surgery (> 45 min) Laparoscopic surgery (> 45 min) Malignancy Confined to bed (> 72 hours) Immobilizing plaster cast Central venous access Age >= 75 History of VTE Family history of VTE Factor V Leiden Prothrombin [id number] Lupus anticoagulant Anticardiolipin antibodies Elevated serum homocysteine Heparin-induced thrombocytopenia Other congenital or acquired thrombophilia Stroke (< 1 month) Elective arthroplasty Hip, pelvis, or leg fracture Acute spinal cord injury (< 1 month) Prophylaxis Regimen: Total Risk Factor Score Risk Level Prophylaxis Regimen 0-1 Low Early ambulation 2 Moderate Order ONE of the following: *Sequential Compression Device (SCD) *Heparin 5000 units SQ BID 3-4 Higher Order ONE of the following medications: *Heparin 5000 units SQ TID *Enoxaparin/Lovenox 40 mg SQ daily (WT < 150 kg, CrCl > 30 mL/min) *Enoxaparin/Lovenox 30 mg SQ daily (WT < 150 kg, CrCl > 10-29 mL/min) *Enoxaparin/Lovenox 30 mg SQ BID (WT < 150 kg, CrCl > 30 mL/min) AND/OR *Sequential Compression Device (SCD) 5 or more Highest Order ONE of the following medications: *Heparin 5000 units SQ TID (Preferred with Epidurals) *Enoxaparin/Lovenox 40 mg SQ daily (WT < 150 kg, CrCl > 30 mL/min) *Enoxaparin/Lovenox 30 mg SQ daily (WT < 150 kg, CrCl > 10-29 mL/min) *Enoxaparin/Lovenox 30 mg SQ BID (WT < 150 kg, CrCl > 30 mL/min) AND *Sequential Compression Device (SCD) Assessment and Plan - Assessment (1) Chest pain Code(s): R07.9 - Chest pain, unspecified Status: Acute - Plan Chest pain -Patient presented with very atypical chest discomfort. Patient with risk factors include history of hypertension, hyperlipidemia, diabetes, tobacco use -Patient has been ruled out for acute coronary event with serial cardiac enzymes are negative -Serial EKGs reviewed by myself in which showed sinus rhythm without any changes -We will plan on performing stress test to rule out any underlying ischemia -Continue aspirin, nitroglycerin as needed -Continue monitor telemetry Fibromyalgia -Medication continue DVT prevention -Sequential compression devices (1) Chest pain Qualifiers: Chest pain type: unspecified Qualified Code(s): R07.9 - Chest pain, unspecified
[2018-04-28 15:20] LABS: Creatine Kinase 78 U/L (26-192)
--- NOTE | 2018-04-28 16:27 | ECG ---
Date Performed: 04/28/2018 Time Performed: 14:46:45 PTAGE: 47 years EKG: Sinus rhythm NORMAL ECG PREVIOUS TRACING : 04/28/2018 11.02 No significant change from previous tracing noted. DOCTOR: Arnel Gaines Interpretating Date/Time 04/28/2018 16:27:07
[2018-04-28 19:41] LABS: Creatine Kinase 72 U/L (26-192)
--- NOTE | 2018-04-28 20:57 | ECG ---
Date Performed: 04/28/2018 Time Performed: 18:28:52 PTAGE: 47 years EKG: Sinus rhythm POSSIBLE LATERAL MYOCARDIAL INFARCTION BORDERLINE ECG PREVIOUS TRACING : 04/28/2018 14.46 No significant change from previous tracing noted. DOCTOR: Arnel Gaines Interpretating Date/Time 04/28/2018 20:55:32
[2018-04-28] MEDS ORDERED: traZODone 100 MG Tablet PO SCH (21:00)
[2018-04-28] MEDS ORDERED: clonazePAM 1 MG Tablet PO SCH (21:00)
[2018-04-28] MEDS ORDERED: Nortriptyline 25 MG Capsule PO SCH (21:00)
[2018-04-29 08:10] VITALS: O2SAT 98
--- NOTE | 2018-04-29 08:44 | P.PN ---
Subjective Interval history: 47-year-old female who is seen and examined today for follow-up on chest discomfort. Patient is resting comfortably in bed. Denies any recurrent chest discomfort. Awaiting stress test to be performed. Vital signs are stable, patient remains afebrile. Physical Exam Vital signs: Vital Signs 04/28/18 11:02 04/28/18 11:30 04/28/18 13:12 Temperature 97.7 F Pulse Rate 72 65 71 Respiratory Rate 16 16 16 Blood Pressure 148/83 H 125/78 131/84 Pulse Oximetry 100 100 100 04/28/18 14:38 04/28/18 19:40 04/28/18 20:00 Temperature 96.8 F L 96.4 F L Pulse Rate 75 75 Respiratory Rate 20 18 Blood Pressure 170/84 H 125/74 Pulse Oximetry 98 98 98 04/29/18 00:00 04/29/18 04:00 04/29/18 08:00 Temperature 97.4 F L 96.5 F L Pulse Rate 64 75 Respiratory Rate 16 16 Blood Pressure 102/63 98/57 L Pulse Oximetry 97 97 98 Intake & Output 04/28/18 04/29/18 04/29/18 18:59 06:59 18:59 Intake Total 200 / 200 Balance 200 / 200 Weight 78 kg 78 kg Intake: Oral 200 / 200 Other: # Voids 2 Date of Last Bowel Movement 04/26/18 Weight On Admission 78 kg Narrative: GENERAL: Well-developed, well-nourished, in no acute distress. alert and orientated HEENT: Head is normocephalic without any lesions or masses noted. Facial features are symmetric. Eyes: Extraocular muscles are intact. Conjunctivae were clear. NECK: Supple without any masses. Trachea midline no deviation. No JVD, CARDIAC: Regular rhythm, regular rate. S1/S2 are heard. No murmurs gallops or rubs. LUNGS: Clear to auscultation bilaterally. No wheeze, rhonchi or rales. No use of accessory muscles on inspiration or expiration. ABDOMEN: Soft, nontender. Nondistended. Bowel sounds heard in all 4 quadrants. No organomegaly or masses. Negative rebound, negative guarding EXTREMITIES: No edema, pulses are equal bilaterally. No cyanosis or clubbing NEUROLOGY: Mood and affect appear appropriate. Cranial nerves II through XII grossly intact. Moving all extremities, speech is clear Results - Labs CBC & Chem 7: 04/28/18 11:57 04/28/18 11:57 Laboratory Results - last 24 hr 04/28/18 04/28/18 04/28/18 11:57 11:57 14:55 CBC w Diff Auto diff final WBC 6.3 RBC 4.78 Hgb 13.4 Hct 39.9 MCV 83.5 MCH 28.1 MCHC 33.6 RDW 12.5 Plt Count 268 MPV 8.1 Neut % (Auto) 73.5 H Lymph % (Auto) 18.7 Maries % (Auto) 5.7 Eos % (Auto) 1.5 Baso % (Auto) 0.6 Neut # (Auto) 4.6 Lymph # (Auto) 1.2 Maries # (Auto) 0.4 Eos # (Auto) 0.1 Baso # (Auto) 0.0 WBC Differential . Differential Comment . Sodium 139 Potassium 3.8 Chloride 105 Carbon Dioxide 27.3 Anion Gap 7 BUN 12 Creatinine 0.98 Estimated GFR 60 L Random Glucose 77 Calcium 9.2 Total Creatine Kinase 78 Troponin I Less than 0.02 L Less than 0.02 L 04/28/18 18:30 CBC w Diff WBC RBC Hgb Hct MCV MCH MCHC RDW Plt Count MPV Neut % (Auto) Lymph % (Auto) Maries % (Auto) Eos % (Auto) Baso % (Auto) Neut # (Auto) Lymph # (Auto) Maries # (Auto) Eos # (Auto) Baso # (Auto) WBC Differential Differential Comment Sodium Potassium Chloride Carbon Dioxide Anion Gap BUN Creatinine Estimated GFR Random Glucose Calcium Total Creatine Kinase 72 Troponin I Less than 0.02 L - Imaging Chest X-Ray 04/28/18 11:34 CONCLUSION: 1. Granulomatous type calcifications in both lungs, left greater than right. 2. No acute infiltrate. Myocardial Perfusion Scan Nuc Med 04/29/18 06:00 CONCLUSION: 1. Negative examination. Assessment and Plan - Assessment (1) Chest pain Code(s): R07.9 - Chest pain, unspecified Status: Acute - Plan Chest pain -Patient presented with very atypical chest discomfort. Patient with risk factors include history of hypertension, hyperlipidemia, diabetes, tobacco use -Patient has been ruled out for acute coronary event with serial cardiac enzymes are negative -Serial EKGs reviewed by myself in which showed sinus rhythm without any changes -Myocardial perfusion study was performed and indicated no signs of ischemia, low risk -Continue aspirin, nitroglycerin as needed Fibromyalgia -Medication continue DVT prevention -Sequential compression devices Discussed Condition With: Discussed with the patient that after her workup has been completed. Her chest discomfort is not related to any underlying cardiac condition. Patient will need to follow-up with her prior medical doctor for further evaluation of her discomfort. Life-threatening conditions have been ruled out at this time. Discharge Planning: Discharge home in stable condition Activity: Ad erlinda. Diet: Healthy heart diet Medication per medication reconciliation Follow-up with primary medical doctor in 1 week (1) Chest pain Qualifiers: Chest pain type: unspecified Qualified Code(s): R07.9 - Chest pain, unspecified
[2018-04-29] MEDS ORDERED: Aspirin 325 MG Tablet PO SCH (09:00)
[2018-04-29 09:37] VITALS: BP 133/87; PULSE 72; RESP 20; TEMP 97.2
[2018-04-29] MEDS ORDERED: Regadenoson Inj 0.4 MG/5 ML Syringe IV.PUSH ONE (11:21)
--- NOTE | 2018-04-29 12:32 | NM ---
EXAM DATE: 04/29/2018 12:13 PM EDT AGE/SEX: 47 years / Female INDICATIONS:Angina. . Chest pain. CLINICAL DATA: This is the patient's initial encounter. Patient reports that signs and symptoms have been present for 1 day and indicates a pain score of 5/10. MEDICAL/SURGICAL HISTORY: Diabetes mellitus type II. Hypertension. Fibromyalgia. Hysterectomy . Gastric bypass. COMPARISON: No prior exams available for comparison. DOSE: 8.1 mCi Tc 99m Myoview at rest 26.8 mCi [id number] at stress 0.4 mg Lexiscan STRESS SYMPTOMS: None. EJECTION FRACTION: 70 % TECHNIQUE: The patient underwent pharmacologic stress with infusion of prescribed dose. Continuous ECG tracing was monitored during stress. Gated SPECT imaging was performed after stress and conventi onal SPECT imaging was performed at rest. The examination was performed on a SPECT/CT scanner, both attenuation and non-corrected datasets were reviewed. FINDINGS: Distribution: The maximum perfused segment at stress is in the wall. Perfusion Study: The pattern of perfusion at stress is within normal limits. Gated Study: There are intact wall motion and wall thickening without hypokinetic or dyskinetic segm ents. The ejection fraction is calculated at 70%. RISK CATEGORY: Low (<1% Annual Motality Rate) CONCLUSION: 1. Negative examination. Electronically signed by: Kike Swanson MD 04/29/2018 12:30 PM EDT
--- NOTE | 2018-04-30 11:42 | TR ---
Date Performed: 04/29/2018 Time Performed: 11:28:48 DOCTOR: Brennan Cotto DRUG LIST: CLINICAL HISTORY: REASON FOR TEST: REASON FOR ENDING: OBSERVATION: CONCLUSION: Lexiscan stress test was performed under standard four minute protocol. Radionuclide was injected one minute prior to ending the test. No electrocardiographic abormalities were present to suggest ischemia. Nuclear imaging and interpretation are pending. COMMENTS:
== END 2018-04-29 13:14 | disposition home or self-care (01) ==
LOC: PHEDA 10:56 → PHED 10:56 → PH3 10:56
PROVIDERS: ADMIT Family Medicine; ATTEND Family Medicine